=== PATIENT | female | born 1960 | race African-American/Black ===

== ENCOUNTER → 2017-09-05 | Day surgery (SDC) | payer OTHER ==
--- NOTE | 2017-08-29 15:15 | MH ---
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 ATTENDING PHYSICIAN: Neli Varghese MD HISTORY OF PRESENT ILLNESS: The patient is a 57-year-old female who required a needle localized lumpectomy for high grade DCIS in 12/2015. She declined radiation or consideration of tamoxifen or mastectomy at that time. Final pathology demonstrated a 1.1 cm high grade DCIS involving the inferior margin, but this was reexcised at the time of lumpectomy and the new margin was negative. Bilateral diagnostic mammography at [place] on 01/06/2017, demonstrated microcalcifications near the previous lumpectomy site. Stereotactic biopsy on 01/22 demonstrated high grade DCIS with comedo necrosis. At that time, we discussed excision with whole breast radiation versus mastectomy. She initially opted for mastectomy at her convenience and saw Dr. Domingo to coordinate immediate reconstruction. She has now decided she does not want mastectomy or reconstruction and will only agree to a needle localized lumpectomy and sentinel lymph node biopsy. She does understand that this is not what I would recommend and that her risk of local recurrence is again elevated. MEDICAL PROBLEMS: Include hypertension and a previous DCIS. ALLERGIES: SHE HAS NO DRUG ALLERGIES. MEDICATIONS: Her only medication is amlodipine 5 mg daily and a multivitamin. PAST SURGICAL HISTORY: Included a colon resection for multiple benign polyps in 2002 and the right breast lumpectomy in 2015. REPRODUCTIVE HISTORY: G2, P2. Menarche age 12; first child, age 33; menopause age 49. She does not take hormone replacement therapy. FAMILY HISTORY: Significant for a maternal grandmother with postmenopausal breast cancer and 2 maternal aunts had postmenopausal breast cancer as well as 2 first cousins. The patient previously had genetic panel testing, which was negative. REVIEW OF SYSTEMS: A 12-point review of systems is otherwise noncontributory. PHYSICAL EXAMINATION: GENERAL: She is alert and oriented x 3 and appears younger than her stated age. VITAL SIGNS: She was 5 feet 5 inches and weighed 141 pounds with a BMI of 23. Blood pressure 152/82, heart rate 84, respirations 16. HEENT: Unremarkable. NECK: Supple with no adenopathy or thyromegaly. CHEST: Clear. CARDIAC: Unremarkable. BREASTS: Revealed fibrocystic changes with some induration in the upper outer right breast and an 8 o'clock periareolar right breast scar. ABDOMEN: Revealed a midline scar with mild keloid, but there were no masses or tenderness. The remainder of her exam was unremarkable. IMPRESSION: Ms. King has recurrent ductal carcinoma in situ and has declined consideration of mastectomy, radiation, or tamoxifen. She does understand that lumpectomy alone increases risk of local recurrence, and she is willing to accept this risk. MD ANDREAS Crouch/NARENDRA , 02:52 PM , 03:09 PM
[~2017-09-05] MED LIST: BUPIVACAINE HCL PF 0.5% 10 ML VIAL ONE; ISOSULFAN BLUE 50 MG/5 ML VIAL SQ ONE; KETOROLAC TROMETHAMINE 30 MG/ML (IVP) VIAL IV PUSH ONE; LACTATED RINGER'S 1000 ML INJ 1,000 ML ONE; MEPERIDINE HCL 25 MG/ML VIAL ONE; MIDAZOLAM HCL 2 MG/2 ML VIAL ONE; ONDANSETRON HCL 4 MG/2 ML VIAL IV PUSH ONE; PROPOFOL 200 MG/20 ML AMP IV ONE; SODIUM CHLORIDE 0.9% INJ 10 ML ONE; ceFAZolin INJ 1,000 MG VIAL ONE
--- NOTE | 2017-09-05 14:08 | MP ---
cc: Neli Varghese MD DATE OF OPERATION: 09/05/2017 DATE OF SURGERY: 09/05/2017. PREOPERATIVE DIAGNOSIS: Right breast recurrent ductal carcinoma in situ, stage 0. POSTOPERATIVE DIAGNOSIS: Right breast recurrent ductal carcinoma in situ, stage 0. PROCEDURE PERFORMED: Right breast lumpectomy and right axillary sentinel lymph node biopsy. PROCEDURE PERFORMED: Right breast needle localized lumpectomy and right axillary sentinel lymph node biopsy. SURGEON: Neli Varghese MD ANESTHESIA: General via LMA device. INDICATION FOR PROCEDURE: The patient is a 57-year-old female diagnosed with ductal carcinoma in situ of the right breast approximately 2 years ago. She had a right breast lumpectomy at that time, but refused adjuvant radiation. Late last year, she had a screening mammogram which demonstrated microcalcifications near the area of her lumpectomy scar. Stereotactic biopsy demonstrated ductal carcinoma in situ. We again discussed her diagnosis and I strongly recommended mastectomy with or without reconstruction given her reluctance to undergo radiation. She was initially agreeable to this, but subsequently changed her mind and has opted instead for lumpectomy and sentinel node biopsy. She understands she is at elevated risk for local recurrence and wishes to proceed with this plan. FINDINGS AT THE TIME OF SURGERY: Three sentinel lymph nodes were identified. Number 1 had a count of 699 and was 1+ blue and number 2 had a count of 401 and was 1+ blue. These nodes were very high near the axillary vein and somewhat anterior to it. [place] node number 3 in the mid level 1 and had a count of 75 and was not blue. Specimen mammogram did indicate an intact wire, and the biopsy clip and calcifications were within the specimen. DESCRIPTION OF PROCEDURE: After informed consent was obtained and site verification was performed, the patient was brought to the radiology suite where she underwent peritumoral radionucleotide injection as well as needle localization of her biopsy site. She was then brought to the major operating room where she underwent general anesthesia via an LMA device. She was given a single dose of Ancef and sequential compression hose were placed. Next, 2 mL of half-strength Lymphazurin were injected in the subareolar right breast and a 5-minute massage was performed. The right breast and arm were then prepped and draped in sterile fashion. An incision was anesthetized at the inferior aspect of the right axillary hairline using 0.5% Marcaine plain and both sharp and electrocautery dissection were performed until the level 1 axilla was entered. There was a small palpable node near the chest wall and this was circumferentially dissected free from surrounding structures using the Harmonic scalpel. This node had a count of 75. More anterior to the axillary vein, there were two blue lymph nodes which were circumferentially dissected free from surrounding structures using the Harmonic scalpel. These 2 nodes had much higher counts and they became sentinel nodes 1 and 2. Touch prep was not performed and good hemostasis was noted in the axilla. The axillary vein, long thoracic, and thoracodorsal neurovascular bundles were identified and remained intact throughout the dissection. Good hemostasis was noted and the wound was closed using interrupted 3-0 Vicryl subcutaneous sutures and a 4-0 Monocryl subcuticular suture. Attention was then turned to the right breast where the wire was identified at 8 o'clock 3 cm from the nipple. Her previous periareolar incision was in the same location and this was anesthetized with 0.5% Marcaine plain. Sharp and electrocautery dissection was then performed until the wire entry point through the skin was identified and secured with a hemostat. The wire was cut off at the skin with pin cutters and a 2-0 silk transfixion suture was placed at the wire entry point into the very dense breast tissue. Sharp and electrocautery dissection was performed circumferentially around the wire and the specimen was oriented with 2 sutures laterally, 1 long suture anteriorly, and 1 short suture superiorly. Inspection of the specimen did demonstrate that the inferior margin appeared close and this was sharply reexcised with a stitch on the new margin. Hemostasis was obtained using electrocautery, and the wound was closed using interrupted 3-0 Vicryl subcutaneous sutures and a 4-0 Monocryl subcuticular suture. Steri-Strips and a sterile dressing were applied. The patient tolerated the procedure well with a blood loss of 200 mL and she was extubated in the operating room and brought to the recovery room in good condition. All sponge and needle counts were correct at the conclusion of the case. MD ANDREAS Crouch/LORENA , 01:25 PM , 02:07 PM
== END | disposition home or self-care (01) ==
LOC: ESDC 07:11
PROVIDERS: ATTEND Surgery
DX: D05.11 Intraductal carcinoma in situ of right breast (principal)
CPT/HCPCS: 00400; 01610; 19125; 38525; 38792; 88305; 88307; J0690; J1885; J2175; J2250; J2405; J3010; J7120; Q9968